=== PATIENT | female | born 1960 | race Caucasian/White ===

== ENCOUNTER → 2024-01-03 08:56 | Outpatient (REF) | payer OTHER, SELFPAY | LOC: HWRAD 08:56 | PROVIDERS: ATTENDING PHYSICIAN Urology; FAMILY PHYSICIAN Family Medicine | DX: N81.6 Rectocele (principal); N39.3 Stress incontinence (female) (male); R33.9 Retention of urine, unspecified | CPT/HCPCS: 76770; 76856 ==

== ENCOUNTER → 2024-01-29 08:37 | Outpatient (REF) | payer OTHER, SELFPAY | LOC: PAVMRI 08:37 | PROVIDERS: ATTENDING PHYSICIAN Nurse Practitioner Adult Health; FAMILY PHYSICIAN Family Medicine | DX: G95.20 Unspecified cord compression (principal); R29.898 Other symptoms and signs involving the musculoskeletal system; M54.41 Lumbago with sciatica, right side; M54.42 Lumbago with sciatica, left side | CPT/HCPCS: 72148 ==

== ENCOUNTER → 2024-04-28 16:41 | Outpatient (REF) | payer OTHER, SELFPAY | LOC: WDC 16:41 | PROVIDERS: ATTENDING PHYSICIAN Family Medicine | DX: Z12.31 Encounter for screening mammogram for malignant neoplasm of breast (principal) | CPT/HCPCS: 77063; 77067 ==

== ENCOUNTER → 2025-03-30 18:06 | Outpatient (REF) | payer OTHER, SELFPAY | LOC: RAD 18:06 | PROVIDERS: ATTENDING PHYSICIAN Physician Assistant Medical; FAMILY PHYSICIAN Family Medicine | DX: M47.812 Spondylosis without myelopathy or radiculopathy, cervical region (principal); V80.010A Animal-rider injured by fall from or being thrown from horse in noncollision accident, initial encounter; M54.9 Dorsalgia, unspecified | CPT/HCPCS: 72052; 72114 ==

== ENCOUNTER → 2025-04-30 16:30 | Outpatient (REF) | payer OTHER, SELFPAY | LOC: WDC 16:30 | PROVIDERS: ATTENDING PHYSICIAN Family Medicine | DX: Z12.31 Encounter for screening mammogram for malignant neoplasm of breast (principal) | CPT/HCPCS: 77063; 77067 ==

== ENCOUNTER → 2025-05-11 14:53 | Outpatient (REF) | payer OTHER, SELFPAY | LOC: WDC 14:53 | PROVIDERS: ATTENDING PHYSICIAN Family Medicine | DX: R92.2 Inconclusive mammogram (principal) | CPT/HCPCS: 76641 ==

== ENCOUNTER → 2025-06-29 08:44 | Outpatient (REF) | payer OTHER, SELFPAY | LOC: MRI 3T 08:44 | PROVIDERS: ATTENDING PHYSICIAN Physician Assistant Medical; FAMILY PHYSICIAN Family Medicine | DX: M54.12 Radiculopathy, cervical region (principal); M47.812 Spondylosis without myelopathy or radiculopathy, cervical region; R29.898 Other symptoms and signs involving the musculoskeletal system; M54.16 Radiculopathy, lumbar region; M47.816 Spondylosis without myelopathy or radiculopathy, lumbar region; V80.010A Animal-rider injured by fall from or being thrown from horse in noncollision accident, initial encounter | CPT/HCPCS: 72141; 72148 ==